=== PATIENT | female | born 1970 | race African-American/Black ===

== ENCOUNTER → 2021-11-28 14:00 | Outpatient (CLI) | payer BC, SELFPAY ==
--- NOTE | ~2021-11-28 | US_ITS ---
US thyroid INDICATION: Thyroid enlargement by examination. TECHNIQUE: Real-time sonographic images of the thyroid gland were obtained. COMPARISON: No prior studies for comparison. FINDINGS: The right thyroid lobe measures 4.2 x 1.2 x 1.3 cm. The left thyroid lobe measures 3.5 x 1 .1 x 1.6 cm. There is heterogeneous echotexture throughout the thyroid gland. No discrete mass in the left lobe. In the right lobe there are 2 small masses. Largest dominant mass mid aspect of the right lobe measures 7 x 6 x 3 mm and is oval, solid, hypoechoic, wider than tall, smoothly marginated with out internal echogenic foci, TR 4. There is a smaller 4 mm cyst. IMPRESSION: 1. Small right thyroid nodules, largest measuring 7 mm, TR 4. No discrete masses are identified in e ither lobe which meet sonographic criteria for biopsy. Reviewed, dictated and finalized at location A. IMPRESSION: 1. Small right thyroid nodules, largest measuring 7 mm, TR 4. No discrete mass es are identified in either lobe which meet sonographic criteria for biopsy.
== END ==
PROVIDERS: PCP Family Medicine; Visit Provider Family Medicine
DX: E04.2 Nontoxic multinodular goiter (principal)
CPT/HCPCS: 76536

== ENCOUNTER → 2022-01-30 12:08 | Outpatient (CLI) | payer BC, SELFPAY ==
--- NOTE | ~2022-01-30 | MM_ITS ---
EXAMINATION: MM screening [place] BI w tyree HISTORY: Screening mammogram TECHNIQUE: Craniocaudal and mediolateral oblique 3-D tomosynthesis images were obtained and synthetic 2-D images were generated. CAD analysis was submitted and interpreted. COMPARISON: No prior mammogram is available for comparison at this institution. BREAST PARENCHYMAL COMPOSITION: The breasts are heterogeneously dense, which may obscure small masses . FINDINGS: No suspicious mass, calcification, or architectural distortion are identified in either wade ast to suggest malignancy. IMPRESSION: 1. No mammographic evidence of malignancy. 2. Recommend routine screening mammography in one year. BI-RADS Category 1: Negative Reviewed, dictated and finalized at location A. ICAL ANALYST
== END ==
PROVIDERS: PCP Family Medicine; Visit Provider Family Medicine
DX: Z12.31 Encounter for screening mammogram for malignant neoplasm of breast (principal)
CPT/HCPCS: 77063; 77067

== ENCOUNTER 2023-05-22 00:54 | Day surgery (SDC) | payer BC, SELFPAY ==
[2023-05-13 14:13] VITALS: BMI 44.5
[2023-05-22 13:11] VITALS: BP 150/85; PULSE 87; RESP 18; TEMP 36.2; O2SAT 100
--- NOTE | 2023-05-22 13:19 | WPDANESEPPF ---
Anes - Initial Pre Proc Eval Procedure: Operation Date: 05/22/23 14:00 Proposed Procedures p Screening Colonoscopy - Torito Ferrell MD Date/Time: 05/22/23 13:19 Surgeon: Torito Ferrell MD Pre Op Diagnosis: neoplasm screening Patient Data Age: 52 Gender: F Height: 1.65 m Weight: 120.3 kg Last Vital Signs Temp 36.2 C L 05/22/23 13:11 Pulse 87 05/22/23 13:11 Resp 18 05/22/23 13:11 BP 150/85 H 05/22/23 13:11 Pulse Ox 100 05/22/23 13:11 O2 Del Method Room Air 05/22/23 13:11 Allergies Allergy/AdvReac Type Severity Reaction Status Date / Time lisinopril Allergy Intermediate Stopped Verified 05/22/23 13:08 Breathing Home Medications Medication Instructions Recorded Confirmed Type amlodipine 5 mg tablet 5 mg PO DAILY #90 tabs 04/14/23 05/22/23 Rx triamterene 37.5 1 tablet PO DAILY #90 tabs 04/14/23 05/22/23 Rx mg-hydrochlorothiazide 25 mg tablet Patient hx anesthesia problems: none Family hx anesthesia problems: none Results Review: All pre-operative results and documents have been reviewed as part of the pre-operative evaluation. [facility] Past Medical History Medical History Essential (primary) hypertension Mixed hyperlipidemia Morbid obesity Nontoxic goiter, unspecified Prediabetes Social History Social History Smoking status: Never smoker Alcohol intake: never Substance use: never Substance use type: does not use Lack of Transportation: No Lack of Food: Never True Current Housing: I Have Housing Concerned About Future Housing: No Difficulty Paying Gas/Electric Bills: No Difficulty Paying for Meds: No Currently Unemployed: No Education: High School Diploma/GED Living arrangements: with family Occupation/Education: occupation Gender identity (if verbalized by the patient): Female Sexual Orientation (if Verbalized by the Patient): Straight or Heterosexual Spiritual care concerns: No Anes - Eval Final PreProcedure Day of Procedure 05/22/23 13:19 Patient weight: morbidly obese Heart: regular rate and rhythm Lungs: clear to auscultation Airway: Mallampati scale class II Neurological: alert and oriented Last oral intake: >/= 8 hours ASA classification: III Emergent: no Anesthetic plan: proceed Anesthesia type and monitoring: general GIVS and standard monitoring Results Review: All pre-operative results and documents have been reviewed as part of the pre-operative evaluation. Informed Consent: The patient's anesthetic plan and its attendant risks and benefits were discussed with the patient/family/POA. Questions were solicited and answers provided to the satisfaction of the patient/family/POA.
[2023-05-22] MEDS: LACTATED RINGERS 1,000 ML 150 ML IV CONT (13:22)
--- NOTE | 2023-05-22 13:31 | PM.HPGS ---
History of Present Illness History of Present Illness Consent: Risks, benefits, and alternatives have been discussed and questions answered. Patient agrees to proceed with procedure. Chief complaint: neoplasm screening Narrative: Barbara Fox is a 52 year old female here for first screening colonoscopy Review of Systems Review of Systems: All systems reviewed & are unremarkable except as noted in HPI and below [facility] Past Medical History Medical History (Updated 05/22/23 @ 13:32 by Torito Ferrell MD) Colon cancer screening Essential (primary) hypertension Mixed hyperlipidemia Morbid obesity Nontoxic goiter, unspecified Prediabetes Social History Social History Smoking status: Never smoker Alcohol intake: never Substance use: never Substance use type: does not use Lack of Transportation: No Lack of Food: Never True Current Housing: I Have Housing Concerned About Future Housing: No Difficulty Paying Gas/Electric Bills: No Difficulty Paying for Meds: No Currently Unemployed: No Education: High School Diploma/GED Living arrangements: with family Occupation/Education: occupation Gender identity (if verbalized by the patient): Female Sexual Orientation (if Verbalized by the Patient): Straight or Heterosexual Spiritual care concerns: No Meds Home Medications and Allergies Home Medications Medication Instructions Recorded Confirmed Type amlodipine 5 mg tablet 5 mg PO DAILY #90 tabs 04/14/23 05/22/23 Rx triamterene 37.5 1 tablet PO DAILY #90 tabs 04/14/23 05/22/23 Rx mg-hydrochlorothiazide 25 mg tablet Allergies Allergy/AdvReac Type Severity Reaction Status Date / Time lisinopril Allergy Intermediate Stopped Verified 05/22/23 13:08 Breathing Vital Signs Vital Signs - 24 hr 05/22/23 13:11 Temperature 97.1 F L Pulse Rate 87 Respiratory Rate 18 Blood Pressure 150/85 H Pulse Oximetry 100 Oxygen Delivery Room Air Exam Const: General: comfortable and no acute distress HENMT: Face/Nose/Sinus: Normal nares present Eyes: General: appearance normal, both eyes and all related structures Neck: Neck: no JVD Resp: Auscultation: clear to auscultation bilaterally Cardio: Rate: regular rate Rhythm: regular rhythm GI: Inspection: non-distended GI Palp: Yes Soft to palpation Skin: General skin exam: normal color Neuro: General: gait normal Speech: normal speech Extrem: General: normal to inspection Psych: Mental Status: mental status grossly normal Assessment and Plan Assessment and plan (1) Colon cancer screening: Code(s): Z12.11 - Encounter for screening for malignant neoplasm of colon Status: Acute Assessment and Plan: colonoscopy
[2023-05-22 13:44] VITALS: BP 135/71; PULSE 65; RESP 19; O2SAT 100
[2023-05-22 13:54] VITALS: BP 144/70; PULSE 62; RESP 19; O2SAT 100
[2023-05-22 14:04] VITALS: BP 145/83; PULSE 72; RESP 17; O2SAT 100
== END 2023-05-22 14:15 | disposition home or self-care (01) ==
PROVIDERS: PCP Family Medicine; Visit Provider Internal Medicine Gastroenterology
PROC: 0DJD8ZZ Inspection of Lower Intestinal Tract, Via Natural or Artificial Opening Endoscopic (ICD-10-PCS; CPT 45378; principal; 2023-05-22 14:00)
DX: Z12.11 Encounter for screening for malignant neoplasm of colon (principal); D12.2 Benign neoplasm of ascending colon; K64.8 Other hemorrhoids; I10 Essential (primary) hypertension; E78.2 Mixed hyperlipidemia; E66.01 Morbid (severe) obesity due to excess calories; Z68.41 Body mass index [BMI] 40.0-44.9, adult
CPT/HCPCS: 45385; 88305; J2704; J7120

== ENCOUNTER 2024-10-04 06:45 | Emergency (ER) | payer BC, SELFPAY ==
--- NOTE | ~2024-10-04 | CT_ITS ---
EXAMINATION: CT abdomen pelvis w con DATE: 10/04/2024 08:03 INDICATION: Abdominal pain. Diarrhea. TECHNIQUE: Computed tomography (CT) of the abdomen and pelvis was performed with 100 cc Omnipaque 350 intravenous contrast. The dose-length product was 1364.94 mGy-cm. Automated exposure control and ite rative reconstruction technique were employed. COMPARISON: None. FINDINGS: Lung bases unremarkable. Heart size normal. No significant pleural or pericardial effusion. Fatty infiltration of the liver. The spleen, pancreas, adrenal glands and kidneys are unremarkable. Small fat-containing umbilical hernia. Gallbladder is present. Nonobstructive bowel gas pattern. No e vidence for diverticulitis or appendicitis. No significant vascular abnormality. No lymphadenopathy. No acute osseous abnormality. IMPRESSION: 1. No acute abdominal abnormality. Reviewed, dictated and finalized at location A.
--- OUTSIDE RECORDS SUMMARY | 2024-10-04 06:47 | XMS_ITS | Encounter Summary ---
Author Organization [facility] Address [address] [place] [address] Care Team Providers Care Sessions Clerk Name Role Phone Lizbeth Cedeño RN Unavailable [phone] Cristiano Obando MD Primary Care Provider Loy Glez MD Primary Care Provider [phone] Encounter Details Date Type Department Care Team (Late st Contact Info) Description 03/04/2019 Telephone [facility] [address] [place] [address] Ryan Hall MD [address] [place] [address] Social History Tobacco Use Types Packs/Day Years Used Date Smoking Tobacco: Never Smokeless Tobacco: Never Alcohol Use Standard Drinks/Week Comments No 0 (1 standard drink = 0.6 oz pur e alcohol) Comments No Sex and Gender Information Value Date Recorded Sex Assigned at Not on file Legal Sex Female 9:01 AM CDT Gender Identity Not on file Sexual Orientation Not on file documented as of this encounter Functional Status * Is person deaf or have serious hearing difficulty? Answer Date of Assessment Author No 08/11/2018 6:02 PM CDT Olvin Contreras RN * Is person blind or have serious difficulty seeing? Answer Date of Assessment Author No 08/11/2018 6:02 PM CDT Olvin Contreras RN * Does person have serious difficulty walking/climbing stairs? Answer Date of Assessment Author No 08/11/2018 6:02 PM CDT Olvin Contreras RN * Does person have difficulty dressing/bathing? Answer Date of Assessment Author No 08/11/2018 6:02 PM FRANCHESCAT Olvin Contreras RN * Does person have difficulty doing errands alone? Answer Date of Assessment Author No 08/11/2018 6:02 PM FRANCHESCAT Olvin Contreras RN documented as of this encounter Mental Status * Does person have difficulty concentrating/remembering/making decisions? Answer Entry Date Author No 08/11/2018 6:02 PM FRANCHESCAT Olvin Contreras RN documented in this encounter Miscellaneous Notes * Telephone Encounter - Claudia Mancuso - 03/04/2019 11:58 AM CST Per [facility]'s automated system, cpt codes: 82409, 58262 x4, and 69170 do not require prior authorization. Call reference# [id number]. Patient is scheduled for this procedure with Dr. Hall on 04/22/19. Claudia Means [phone] NATAL SOCIAL WORKER documented in this encounter Plan of Treatment Not on file documented as of this encounter Visit Diagnoses Not on filedocumented in this encounter Care Teams Sessions Clerk Relationship Specialty Start Date End Date Cristiano [place] [id number] [place] [id number] PCP - General Internal Medicine 08/11/18 10/05/22 oLy Glez MD [address] [place] [id number] PCP - General Family Medicine 10/06/22 Lizbeth Cedeño RN Cooker Process Cheese 12/09/13 documented as of this encounter
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
[2024-10-04 06:53] VITALS: BP 154/91; PULSE 69; RESP 18; TEMP 36.6; O2SAT 97
[2024-10-04 07:15] LABS: BEDSIDEPREGUCG Negative (Negative)
[2024-10-04 07:22] LABS: Hematocrit 38.0 % (37.0-47.0); Hemoglobin 12.0 g/dL (12.0-15.0); Immature Granulocyte Percent A 4.4 % (0-0.5); Lymphocytes Absolute Auto 2.21 K/mm3 (0.9-3.2); Mean Corpuscular HGB Conc 31.6 g/dl (32-36); Mean Corpuscular Hemoglobin 25.4 pg (26-34); Mean Corpuscular Volume 80.5 fl (80-100); Nucleated Red Blood Cells Absolute Auto 0.000 K/mm3 (0.0-0.012); Nucleated Red Blood Cells Perc 0.0 % (0.0-0.2); Platelet Count Result 281 k/mm3 (150-375); Red Blood Count 4.72 M/mm3 (4.2-5.4); White Blood Count 6.5 K/mm3 (4.5-10.0)
--- NOTE | 2024-10-04 07:23 | ED_ITS ---
HPI - Abdominal Pain General Chief Complaint: Abdominal Pain Stated Complaint: abd pain, diarrhea Time Seen by Provider: 10/04/24 07:05 History of Present Illness HPI narrative: Pt presents with mid abdominal pain and diarrhea off and on for 3 days. Pt ate out at restaurant and thinks green beens may have been bad. Pt denies vomiting, fever, or bloody stools. Pt says pain is intermittent and crampy. Pt has had hysterectomy. Pt says stool is green now. Related Data Allergies Allergy/AdvReac Type Severity Reaction Status Date / Time lisinopril Allergy Intermediate Stopped Verified 10/04/24 07:30 Breathing shellfish derived Allergy Swelling Verified 10/04/24 07:30 of Lip/Tongue/Throat Review of Systems 2 Review of Systems: All systems reviewed & are unremarkable except as noted in HPI and below PMFSH Past Medical History Medical History (Updated 10/04/24 @ 09:26 by Armando Ryan III, DO) Personal history of adenomatous and serrated colon polyps Morbid obesity Nontoxic goiter, unspecified Prediabetes Mixed hyperlipidemia Essential (primary) hypertension Social History Social History Smoking status: Never smoker Alcohol intake: never Substance use: never Substance use type: does not use Do You Feel Safe in your Home?: Yes Lack of Transportation: No Lack of Food: Never True Current Housing: I Have Housing Concerned About Future Housing: No Difficulty Paying Gas/Electric Bills: No Difficulty Paying for Meds: No Currently Unemployed: No Education: High School Diploma/GED Living arrangements: with family Occupation/Education: occupation Gender identity (if verbalized by the patient): Female Sexual Orientation (if Verbalized by the Patient): Straight or Heterosexual Spiritual care concerns: No Exam 2 Const: General: healthy appearing and no acute distress Nutritional Appearance: obese Orientation/consciousness: patient oriented x3 L imitations: no limitations Eyes: Pupils: Equal, round and reactive pupils present EOM: EOMs intact bilaterally Resp: Effort & Inspection: normal respiratory effort Auscultation: clear to auscultation bilaterally Cardio: Rate: regular rate Rhythm: regular rhythm GI: GI Palp: Yes Soft to palpation and Yes Tenderness to palpation present (GI) (midline above umbilicus no hernia noted) Auscultation: normal bowel sounds Back/Spine/Pelvis: Back: no CVA tenderness Skin: General skin exam: normal color Rashes: no rashes Wounds: no wounds Neuro: General: patient oriented x3, moves all extremities, no meningeal signs and no focal motor deficits Extrem: General: normal to inspection and no clubbing, cyanosis or edema Psych: Mental Status: mental status grossly normal Affect: normal affect Attitude: cooperative Course Vital Signs Vital signs: Vital Signs Temperature 97.8 F 10/04/24 06:53 Pulse Rate 69 10/04/24 06:53 Respiratory Rate 18 10/04/24 06:53 Blood Pressure 154/91 H 10/04/24 06:53 Pulse Oximetry 97 10/04/24 06:53 Oxygen Delivery Room Air 10/04/24 06:53 Temperature 97.8 F 10/04/24 06:53 Pulse Rate 60 10/04/24 09:59 Respiratory Rate 16 10/04/24 09:59 Blood Pressure 140/80 10/04/24 09:59 Pulse Oximetry 94 10/04/24 09:59 Oxygen Delivery Room Air 10/04/24 06:53 MDM - Abdominal Pain MDM Narrative Medical decision making narrative: Pt presents with intermittent mid abdominal pain and diarrhea for 3 days. Could be food poisoning or colitis or less likely obstruction among others. will get abdominal pain labs and ua and ct abd and pelvis and treat pain. Pt feels better after morphine. ua shows wbc rbc and LE but no bacteria. Pt says she has been having some dysuria and frequency on further questioning so will treat with 5 day course of antibiotics to be safe. labs and ct unremarkable. will prescribe some bentyl for cramps. Differential Diagnosis Differential diagnosis: Likely abdominal pain, diverticulitis, small bowel obstruction and other (colitis) Lab Data 10/04/24 07:13 10/04/24 07:13 Labs: Lab Results 10/04/24 10/04/24 Range/Units 06:46 07:13 WBC 6.5 (4.5-10.0) K/mm3 RBC 4.72 (4.2-5.4) M/mm3 Hgb 12.0 (12.0-15.0) g/dL Hct 38.0 (37.0-47.0) % MCV 80.5 (80-100) fl MCH 25.4 L (26-34) pg MCHC 31.6 L (32-36) g/dl RDW 14.8 H (11.5-14.5) % Plt Count 281 (150-375) k/mm3 MPV 9.6 (7.4-10.4) fl Immature Gran % (Auto) 4.4 H (0-0.5) % Neut % (Auto) 53.2 (45.5-73.1) % Lymph % (Auto) 33.8 (18.3-44.2) % [place] % (Auto) 6.6 (2.6-8.5) % Eos % (Auto) 1.4 (0-4.4) % Baso % (Auto) 0.6 (0.2-1.2) % Lymph # (Auto) 2.21 (0.9-3.2) K/mm3 [place] # (Auto) 0.4 (0.1-0.6) K/mm3 Eos # (Auto) 0.1 (0-0.3) K/mm3 Baso # (Auto) 0.0 (0.0-0.1) K/mm3 Abs Immat Gran (auto) 0.29 H (0.00-0.031) K/mm3 Absolute Neuts (auto) 3.5 (1.3-6.7) K/mm3 Absolute Nucleated RBC 0.000 (0.0-0.012) K/mm3 Nucleated RBC % 0.0 (0.0-0.2) % Sodium 140 (137-145) mmol/L Potassium 3.7 (3.4-5.0) mmol/L Chloride 106 (98-107) mmol/L Carbon Dioxide 26 (22-30) mmol/L Anion Gap 8 (4-12) mmol/L BUN 8 (7-17) mg/dL Creatinine 1.05 H (0.7-1.0) mg/dL Estim Creat Clear Calc 77 ml/min Estimated GFR 55 L (59 - ) Glucose 142 H (65-110) mg/dL Calcium 9.6 (8.4-10.2) mg/dL Total Bilirubin 0.6 (0.2-1.3) mg/dL AST 33 (14-36) U/L ALT 22 (6-35) U/L Alkaline Phosphatase 118 (38-126) U/L Total Protein 7.8 (6.3-8.2) g/dL Albumin 4.3 (3.5-5.1) g/dL Lipase 58 (23-300) U/L Urine Color Yellow (Yellow) Urine Appearance Clear (Clear) Urine pH 5.5 (5.0-9.0) Ur Specific [place] 1.014 (1.001-1.035) Urine Protein Trace (Negative) mg/dL Urine Glucose (UA) Negative (Negative) mg/dL Urine Ketones Negative (Negative) mg/dL Ur Blood (Man) Trace (Negative) Urine Nitrate Negative (Negative) Urine Bilirubin Negative (Negative) Urine Urobilinogen 0.2 (<2.0) mg/dL Leukocyte Esterase Rfl 3+ H (Negative) GHAZAL/UL Urine RBC 11-20 H (0-2) /hpf Urine WBC >100 H (0-3) /hpf Ur Squamous Epith Cells None seen (Few) /hpf Urine Bacteria None seen /hpf Urine Casts 0-2 POC Urine HCG, Qual Negative (Negative) Imaging Data Radiologist's impression: ITS Impressions Abdomen/Pelvis CT 10/04/24 08:18 IMPRESSION: 1. No acute abdominal abnormality. Discharge Plan Discharge Clinical Impression: Diarrhea, UTI (urinary tract infection) Patient Disposition: Home Condition: Improved Instructions: Antibiotic Form, Urinary Tract Infection in Women (DC), Gastroenteritis (DC) Patient Language: Citizen Of [place] Prescriptions: New cefdinir 300 mg capsule 300 mg PO Q12H Qty: 10 0RF dicyclomine 20 mg tablet 20 mg PO QID Qty: 14 0RF No Action amlodipine [Norvasc] 10 mg tablet 10 mg PO DAILY Qty: 90 1RF Jardiance 10 mg tablet 10 mg PO DAILY Qty: 90 1RF triamterene-hydrochlorothiazid 37.5-25 mg tablet 1 tablet PO DAILY Qty: 90 1RF metformin 500 mg tablet 500 mg PO BID Qty: 180 0RF Follow-up/Referrals: Loy Glez MD [Primary Care Provider] - Stand Alone Forms: Work/School Release IP
--- OUTSIDE RECORDS SUMMARY | 2024-10-04 07:23 | XMS_ITS | Clinical Summary ---
Author Organization [facility] Address [address] [place] [address] Care Team Providers Care Coding Auditor Name Role Phone Lizbeth Cedeño RN Unavailable [phone] Loy Glez MD Primary Care Provider [phone] Source Comments [facility],non-[facility] Affiliates and Associated Physician Practices is amultiple site organization consisting of ambulatory clinics and hospital sitesin [place], [place], [place] and [place]. This disclosure is being madepursuant to the Care Everywhere program and may not contain all information available regarding this patient. Last updated 17.[facility] Allergies Active Allergy Reactions Criticality Noted Date [...] Description 08/10/2024 2:30 PM CDT Office Visit [facility] - Plastic Surgery [facility] [place], [facility] [address] [place] [address] Chico Garcia MD Lymphedema of left leg [...] PANEL (CALCIUM TOTAL) Routine 03/29/2019 10:48 AM TABLE TENDER Preoperative examination from Last 3 Months or Most Recently Relevant to Health Maintenance Results * BASIC METABOLIC PANEL (CALCIUM TOTAL) (03/29/2019 10:48 AM TABLE TENDER) BUN 10 7 - 26 mg/dL 03/29/2019 1:15 PM [facility] Creatinine 1.0 0.6 - 1.2 mg/dL 03/29/2019 1:15 PM [facility] Sodium 142 136 - 145 mmol/L 03/29/2019 1:15 PM [facility] Potassium 3.7 3.5 - 4.5 mmol/L 03/29/2019 1:15 PM [facility] Chloride 103 98 - 107 mmol/L 03/29/2019 1:15 PM [facility] CO2 29 22 - 29 mmol/L 03/29/2019 1:15 PM [facility] Glucose 82 70 - 115 mg/dL 03/29/2019 1:15 PM [facility] Calcium 9.5 8.4 - 10.2 mg/dL 03/29/2019 1:15 PM [facility] Anion Gap 14 8 - 18 03/29/2019 1:15 PM [facility] BUN/Creatinine Ratio 10 7 - 23 03/29/2019 1:15 PM [facility] Osmolality Calculated 292 270 - 300 mOsm/kg 03/29/2019 1:15 PM [facility] eGFR >60 >60 mL/min/1.7 3 m2 03/29/2019 1:15 PM [facility] Blood BLOOD SPECIMEN / Unknown Lab Venipuncture / Unknown 03/29/2019 10:48 AM TABLE TENDER 03/29/2019 12:40 PM TABLE TENDER Mireille Calderon Gianfrancohaley PREFINISH OPERATOR-INFLATED [facility] - CHEMISTRY ORDERABL ES Final Result [facility] [address] [phone] from Last 3 Months or Most Recently [...] 3:28 PM 12/10/2013 6:44 PM Care Teams Coding Auditor Relationship Specialty Start Date End Date Loy Glez MD [address] [place] [id number] PCP - General Family Medicine 10/06/22 Lizbeth Cedeño RN [employer] Police Officer 12/09/13
--- OUTSIDE RECORDS SUMMARY | 2024-10-04 07:23 | XMS_ITS | Encounter Summary ---
Author Organization [facility] Address [address] [place] [address] Care Team Providers Care Traffic Law Attorney Name Role Phone Lizbeth Cedeño RN Unavailable [phone] Cristiano Obando MD Primary Care Provider Loy Glez MD Primary Care Provider [phone] Encounter Details Date Type Department Care Team (Late st Contact Info) Description 03/04/2019 Telephone [facility] [address] [place] [address] Ryan Hall MD [address] [place] [address] Social History Tobacco Use Types Packs/Day Years [...] Miscellaneous Notes * Telephone Encounter - Claudia Macnuso - 03/04/2019 11:58 AM CST Per [facility] automated system, cpt codes: 74887, 13506 x4, and 38217 do not require prior authorization. Call reference# [id number]. Patient is scheduled for this procedure with Dr. Hall on 04/22/19. Claudia Means [phone] INE PULLER documented in this encounter Plan of Treatment Not on file documented as of this encounter Visit Diagnoses Not on filedocumented in this encounter Care Teams Traffic Law Attorney Relationship Specialty Start Date End Date Cristiano [place] [id number] [place] [phone] PCP - General Internal Medicine 08/11/18 10/05/22 Lyo Glez MD [address] [place] [id number] PCP - General Family Medicine 10/06/22 Lizbeth Cedeño RN Notary Public 12/09/13 documented as of this encounter
[2024-10-04 07:24] VITALS: BP 163/98; PULSE 64; RESP 16; O2SAT 98
[2024-10-04 07:28] LABS: Add Urine Microscopic? YES; Appearance Urine Clear (Clear); Glucose Urine UA Negative (Negative); Leukocyte Esterase Ur 3+ LEU/UL (Negative); Nitrate Urine Negative (Negative); Non Pathogenic Casts 0-2; Specific Grav Ur 1.014 (1.001-1.035)
[2024-10-04] MEDS: ONDANSETRON INJ 4 MG/2 ML VIAL IV PUSH (07:31)
[2024-10-04] MEDS: MORPHINE SULFATE (*CRX) 4 MG/ML INJ IV PUSH (07:32)
[2024-10-04 07:41] LABS: Alanine Aminotransferase 22 U/L (6-35); Albumin Level 4.3 g/dL (3.5-5.1); Alkaline Phosphatase 118 U/L (38-126); Anion Gap 8 mmol/L (4-12); Aspartate Amino Transferase 33 U/L (14-36); Bilirubin,Total 0.6 mg/dL (0.2-1.3); Blood Urea Nitrogen 8 mg/dL (7-17); Calcium 9.6 mg/dL (8.4-10.2); Carbon Dioxide 26 mmol/L (22-30); Chloride 106 mmol/L (98-107); Estimated CRCL calculation 77 ml/min; Estimated Glomerular Filt Rate 55; Glucose 142 mg/dL (65-110); Lipase 58 U/L (23-300); Potassium 3.7 mmol/L (3.4-5.0); Sodium 140 mmol/L (137-145); Total Protein 7.8 g/dL (6.3-8.2)
[2024-10-04 09:59] VITALS: BP 140/80; PULSE 60; RESP 16; O2SAT 94
== END 2024-10-04 10:00 | disposition home or self-care (01) ==
PROVIDERS: Student in an Organized Health Care Education/Training Program; Emergency Provider Emergency Medicine; PCP Family Medicine
DX: R19.7 Diarrhea, unspecified (principal); N39.0 Urinary tract infection, site not specified; E78.2 Mixed hyperlipidemia; I10 Essential (primary) hypertension
CPT/HCPCS: 36415; 74177; 80053; 81001; 81025; 83690; 85025; 87086; 96374; 96375; 99284; J2270; J2405; Q9967